=== PATIENT | male | born 1990 | race Caucasian/White ===

== ENCOUNTER 2018-10-02 10:26 | Observation (INO) | payer SELFPAY ==
--- NOTE | 2018-10-02 11:14 | ER Document Report ---
ED Medical Screen (RME) - General Chief Complaint: Abscess Stated Complaint: ABSCESS/GENITAL AREA Time Seen by Provider: 10/02/18 11:06 Mode of Arrival: Ambulatory Information source: Patient Notes: Patient presents to the emergency department with complaints of open sore questionable abscess to the left side of his penis that radiates down into the left testicle for the past few days. Denies penile discharge. Reports some left testicular pain. Denies fever vomiting. Reports he only has one sexual partner that is his . Reports he has not shaved his groin area for a while. He is voiding fine. I have greeted and performed a rapid initial assessment of this patient. A comprehensive ED assessment and evaluation of the patient, analysis of test results and completion of the medical decision making process will be conducted by additional ED providers. Dictation of this chart was performed using voice recognition software; therefore, there may be some unintended grammatical errors. TRAVEL OUTSIDE OF THE [place] IN LAST 30 DAYS: No - Related Data Allergies/Adverse Reactions: No Known Allergies Allergy (Verified 10/02/18 10:39) Past Medical History - Social History Frequency of alcohol use: Occasional Drug Abuse: None Renal/ Medical History: Denies: Hx Peritoneal Dialysis Physical Exam - Vital signs Vitals: Temp Pulse Resp BP Pulse Ox 98.3 F 90 20 133/81 H 97 10/02/18 11:00 10/02/18 11:00 10/02/18 11:00 10/02/18 11:00 10/02/18 11:00 Course - Vital Signs Vital signs: Temp Pulse Resp BP Pulse Ox 98.3 F 90 20 133/81 H 97 10/02/18 11:10/02/18 11:00 10/02/18 11:00 10/02/18 11:00 10/02/18 11:00
[2018-10-02 11:52] LABS: APPEARANCE,URINE CLEAR; BILIRUBIN,URINE NEGATIVE (NEGATIVE); COLOR,URINE YELLOW; GLUCOSE, URINE NEGATIVE (NEGATIVE); KETONES,URINE NEGATIVE (NEGATIVE); LEUKOCYTE ESTERASE,URINE NEGATIVE (NEGATIVE); NITRITE,URINE NEGATIVE (NEGATIVE); PROTEIN,URINE NEGATIVE (NEGATIVE); URINE SPECIFIC GRAVITY 1.026
--- NOTE | 2018-10-02 12:39 | RADIOLOGY REPORT (SQ) ---
EXAM DESCRIPTION: U/S SCROTUM W/DOPPLER COMPLETED DATE/TIME: 10/02/2018 12:27 pm REASON FOR STUDY: abscess left side penis, testicular pain COMPARISON: None. TECHNIQUE: Static and realtime peña scale imaging of the scrotum and testes. Selected color Doppler and spectral images recorded to document blood flow. LIMITATIONS: None. FINDINGS: RIGHT: TESTICLE: Normal size. Normal echotexture. Normal blood flow. No mass. EPIDIDYMIS: Normal. HYDROCELE OR VARICOCELE: No. HERNIA OR EXTRA-TESTICULAR MASS: No. OTHER: No other significant finding. LEFT: TESTICLE: Normal size. Normal echotexture. Normal blood flow. No mass. EPIDIDYMIS: Normal. HYDROCELE OR VARICOCELE: Small varicocele. No hydrocele. HERNIA OR EXTRA-TESTICULAR MASS: No. OTHER: Subcutaneous heterogeneous swelling -fluid in the left penile shaft, 4.4 cm in greatest length , 1 cm thickness. IMPRESSION: NO EVIDENCE OF TESTICULAR MASS OR TORSION.Subcutaneous heterogeneous swelling -fluid in the left penile shaft, 4.4 cm in greatest length, 1 cm thickness. TECHNICAL DOCUMENTATION: JOB ID: [id number] [place]-[id number] 2010 [email or web address]- All Rights Reserved Reading location - IP/workstation name: [email or web address]
[2018-10-02 13:20] LABS: CHLAM PCR NOT DETECTED (NOT DETECT)
[2018-10-02] MEDS ORDERED: NORMAL SALINE 1000 ML 1,000 ML IV ONE (14:17)
--- NOTE | 2018-10-02 14:23 | ER Document Report ---
ED Skin Rash/Insect Bite/Abscs - General Chief Complaint: Abscess Stated Complaint: ABSCESS/GENITAL AREA Time Seen by Provider: 10/02/18 11:06 Mode of Arrival: Ambulatory Information source: Patient Notes: In the ED for abscess to his penis. He states it started as a little pimple sore on he tried soaking it in Epson salt he tried squeezing it any states it just got a lot worse he stated that yesterday he had some leftover Keflex from 2 days ago so he took that and he states it just got worse. He states he went to bed at about midnight which is the last time he said anything to eat or drink. He states he slept in this morning and he has not had anything to eat or drink today. He states that did was open a little bit yesterday but it is closed over scabbed over and become much larger. An ultrasound does show that he has a large abscess to the penis. His GC and Chlamydia are negative he is a little dehydrated we will get him some fluids I have consulted Dr. Moeller who will come and examined the patient he is requesting labs and blood cultures these have been started IV fluids have been started. TRAVEL OUTSIDE OF THE [place] IN LAST 30 DAYS: No - HPI Patient complains to provider of: Tender/swollen area Onset: - Onset/Duration: Gradual Quality of pain: Sharp, Throbbing Severity: Moderate Pain Level: 3 Skin Character: Erythema, Tenderness Skin Temperature: Warm Quality of rash: Painful Identify cause: No Exacerbated by: Denies Relieved by: Denies Similar symptoms previously: No Recently seen / treated by doctor: No - Related Data Allergies/Adverse Reactions: No Known Allergies Allergy (Verified 10/02/18 10:39) Past Medical History - General Information source: Patient - Social History Smoking Status: Never Smoker Frequency of alcohol use: Social Drug Abuse: None Lives with: Family Family History: Reviewed & Not Pertinent Patient has suicidal ideation: No Patient has homicidal ideation: No - Past Medical History Cardiac Medical History: Reports: None Pulmonary Medical History: Reports: None EENT Medical History: Reports: None Neurological Medical History: Reports: None Endocrine Medical History: Reports: None Renal/ Medical History: Reports: None Malignancy Medical History: Reports None GI Medical History: Reports: None Musculoskeletal Medical History: Reports None Skin Medical History: Reports None Psychiatric Medical History: Reports: Hx Anxiety Physical Exam - Vital signs Vitals: Temp Pulse Resp BP Pulse Ox 98.3 F 90 20 133/81 H 97 10/02/18 11:00 10/02/18 11:00 10/02/18 11:00 10/02/18 11:00 10/02/18 11:00 Interpretation: Normal - General General appearance: Appears well, Alert - HEENT Head: Normocephalic, Atraumatic Eyes: Normal Pupils: PERRL - Respiratory Respiratory status: No respiratory distress Chest status: Nontender Breath sounds: Normal Chest palpation: Normal - Cardiovascular Rhythm: Regular Heart sounds: Normal auscultation Murmur: No - Abdominal Inspection: Normal Distension: No distension Bowel sounds: Normal Tenderness: Nontender Organomegaly: No organomegaly - Genitourinary Tenderness: Nontender Notes: Large abscess erythema and swelling to penis shaft - Back Back: Normal, Nontender - Extremities General upper extremity: Normal inspection, Nontender, Normal color, Normal ROM, Normal temperature General lower extremity: Normal inspection, Nontender, Normal color, Normal ROM, Normal temperature, Normal weight bearing. No: Kelsea's sign - Neurological Neuro grossly intact: Yes Cognition: Normal Orientation: AAOx4 Amber Coma Scale Eye Opening: Spontaneous Amber Coma Scale Verbal: Oriented Kavin Coma Scale Motor: Obeys Commands Kavin Coma Scale Total: 15 Speech: Normal Motor strength normal: LUE, RUE, LLE, RLE Sensory: Normal - Psychological Associated symptoms: Normal affect, Normal mood - Skin Skin Temperature: Warm Skin Moisture: Dry Skin Color: Normal Skin irregularity: Abscess Location of irregularity: Other - Penis shaft Character of irregularity: Erythematous Irregularity with: Swelling, Tenderness Course - Vital Signs Vital signs: Temp Pulse Resp BP Pulse Ox 97.7 F 75 16 122/74 98 10/02/18 21:18 10/02/18 21:18 10/02/18 21:18 10/02/18 21:18 10/02/18 21:18 - Laboratory Result Diagrams: 10/02/18 14:30 10/02/18 14:30 Laboratory results interpreted by me: 10/02/18 10/02/18 10/02/18 11:20 14:30 14:30 RBC 5.68 H Carbon Dioxide 31 H Urine Urobilinogen 2.0 H Discharge - Discharge Clinical Impression: Abscess of shaft of penis Disposition: ADMITTED OBSERVATION Admitting Provider: Surgicalist Pako moeller
--- NOTE | 2018-10-02 14:49 | PDOC H&P ---
History of Present Illness Patient complains of: Penile swelling, drainage, pain, redness History of Present Illness: SUGAR QUACH is a 27 year old male Presents emergency department via ground rescue complaining of a 5-day history of swelling, pain, discoloration, and intermittent drainage from the left side o f his penis. He was evaluated in the emergency department where he was found to have a penile abscess based on physical examination, and confirmatory ultrasonography showing a 4 x 1 cm of fluid collection. Surgery was consulted as there was no urology regulatory affairs consultant. Findings were consistent with an abscess and needed drainage. He was admitted to the surgical service for management, specifically I&D, packing possible drain placement. Past Medical History Medical History: None Cardiac Medical History: Reports: None Pulmonary Medical History: Reports: None EENT Medical History: Reports: None Neurological Medical History: Reports: None Endocrine Medical History: Reports: None Renal/ Medical History: Reports: None Malignancy Medical History: Reports: None GI Medical History: Reports: None Musculoskeltal Medical History: Reports: None Skin Medical History: Reports: None Past Surgical History Past Surgical History: Reports: None Social History Lives with: Family Smoking Status: Never Smoker Frequency of Alcohol Use: None Hx Recreational Drug Use: No Hx Prescription Drug Abuse: No Family History Family History: None, Reviewed & Not Pertinent Parental Family History Reviewed: Yes Children Family History Reviewed: Yes Sibling(s) Family History Reviewed.: Yes Medication/Allergy Home Medications: Ibuprofen [Motrin 800 mg Tablet] 800 mg PO Q8HP PRN #30 tablet 01/24/17 Allergies/Adverse Reactions: No Known Allergies Allergy (Verified 10/02/18 10:39) Review of Systems Constitutional: PRESENT: as per HPI Eyes: ABSENT: visual disturbances Ears: ABSENT: hearing changes Cardiovascular: ABSENT: chest pain, dyspnea on exertion, edema, orthropnea, palpitations Respiratory: ABSENT: cough, hemoptysis Genitourinary: PRESENT: as per HPI, other - Patient denies dysuria, penile trauma, piercing Musculoskeletal: ABSENT: joint swelling Integumentary: ABSENT: rash, wounds Neurological: ABSENT: abnormal gait, abnormal speech, confusion, dizziness, focal weakness, syncope Psychiatric: ABSENT: anxiety, depression, homidical ideation, suicidal ideation Endocrine: ABSENT: cold intolerance, heat intolerance, polydipsia, polyuria Hematologic/Lymphatic: ABSENT: easy bleeding, easy bruising Physical Exam Vital Signs: Temp Pulse Resp BP Pulse Ox 98.3 F 90 20 133/81 H 97 10/02/18 11:00 10/02/18 11:00 10/02/18 11:00 10/02/18 11:00 10/02/18 11:00 Intake & Output 10/01/18 10/02/18 10/03/18 06:59 06:59 06:59 Weight 104.8 kg General appearance: PRESENT: mild distress Head exam: PRESENT: normocephalic Eye exam: PRESENT: EOMI Mouth exam: PRESENT: dry mucosa Neck exam: PRESENT: full ROM Respiratory exam: PRESENT: clear to auscultation ruslan Cardiovascular exam: PRESENT: RRR Pulses: PRESENT: normal carotid pulses, normal radial pulses, normal femoral pulses GI/Abdominal exam: PRESENT: soft Rectal exam: PRESENT: deferred Gentrourinary exam: PRESENT: other - Penis is enlarged, centrally swollen, with a punctate area of erythema and crusting drainage. The penis is very tender in the mid shaft position Extremities exam: PRESENT: full ROM Musculoskeletal exam: PRESENT: full ROM Neurological exam: PRESENT: oriented to person, oriented to place, oriented to time, oriented to situation Psychiatric exam: PRESENT: appropriate affect Results Laboratory Results: 10/02/18 11:20 Urine Color YELLOW Urine Appearance CLEAR Urine pH 6.0 Ur Specific [place] 1.026 Urine Protein NEGATIVE Urine Glucose (UA) NEGATIVE Urine Ketones NEGATIVE Urine Blood NEGATIVE Urine Nitrite NEGATIVE Ur Leukocyte Esterase NEGATIVE Urine WBC (Auto) 1 Urine RBC (Auto) 0 Impressions: Scrotum Ultrasound 10/02/18 11:10 IMPRESSION: NO EVIDENCE OF TESTICULAR MASS OR TORSION.Subcutaneous heterogeneous swelling -fluid in the left penile shaft, 4.4 cm in greatest length, 1 cm thickness. Assessment & Plan - Diagnosis (1) Penile abscess Is this a current diagnosis for this admission?: Yes Plan: Impression: Acute abscess of the anterior lateral midshaft penis otherwise healthy 27-year-old male; suspect etiology low-grade trauma versus insect bite versus other Recommendations: 1. Admit to the surgical service, keep n.p.o., IV fluids, intravenous antibiotics. 2. Take patient to the operating room for incision drainage packing, will drain placement. The infection appears to be confined to the subcutaneous tissue, and not the corpus cavernosum. He expresses understanding and agrees to proceed. - Time Time Spent: 30 to 50 Minutes Critical Time spent with patient: Less than 15 minutes Medications reviewed and adjusted accordingly: Yes Anticipated discharge: Home - Inpatient Certification Based on my medical assessment, after consideration of the patient's comorbidities, presenting symptoms, or acuity I expect that the services needed warrant INPATIENT care.: Yes I certify that my determination is in accordance with my understanding of Medicare's requirements for reasonable and necessary INPATIENT services [42 CFR 412.3e].: Yes Medical Necessity: Need For IV Fluids, Need for Pain Control, Need for IV Antibiotics, Need for Surgery
[2018-10-02 14:55] LABS: ABSOLUTE EOSINOPHILS # (AUTO) 0.1 10^3/uL (0.0-0.6); ABSOLUTE LYMPHOCYTES (AUTO) 1.8 10^3/uL (0.5-4.7); ABSOLUTE MONOCYTES (AUTO) 1.1 10^3/uL (0.1-1.4); ABSOLUTE NEUT (AUTO) 7.6 10^3/uL (1.7-8.2); BASOPHILS % (AUTO) 0.2 % (0-2); EOSINOPHILS % (AUTO) 0.8 % (0-6); HEMATOCRIT 48.4 % (37.9-51.0); HEMOGLOBIN 16.5 g/dL (13.5-17.0); LYMPHOCYTES % (AUTO) 17.1 % (13-45); MEAN CORPUSCULAR VOLUME 85 fl (80-97); MONOCYTES % (AUTO) 10.1 % (3-13); PLATELET COUNT 189 10^3/uL (150-450); RED BLOOD COUNT 5.68 10^6/uL (4.35-5.55); RED CELL DISTRIBUTION WIDTH 12.9 % (11.5-14.0); SEGMENTED NEUTROPHILS % (AUTO) 71.8 % (42-78); TOTAL CELLS COUNTED % (AUTO) 100 %; WHITE BLOOD COUNT 10.5 10^3/uL (4.0-10.5)
[2018-10-02] MEDS ORDERED: MIDAZOLAM 2 MG/2 ML INJ ONE ×2 (15:08→15:12)
[2018-10-02] MEDS ORDERED: FENTANYL CITRATE INJ/PF 100 MCG/2 ML AMPUL ONE (15:08)
[2018-10-02] MEDS ORDERED: DEXMEDETOMIDINE INJ 80 MCG/20 ML VIAL IV ONE (15:09)
[2018-10-02] MEDS ORDERED: PROPOFOL INJ 200 MG/20 ML VIAL IV ONE (15:09)
[2018-10-02 15:17] LABS: ALANINE AMINOTRANSFERASE 41 U/L (21-72); ALBUMIN 4.7 g/dL (3.5-5.0); ALKALINE PHOSPHATASE 82 U/L (38-126); ANION GAP 12 (5-19); ASPARTATE AMINO TRANSFERASE 42 U/L (17-59); BILIRUBIN,DIRECT 0.3 mg/dL (0.0-0.4); BILIRUBIN,TOTAL 1.1 mg/dL (0.2-1.3); BLOOD UREA NITROGEN 16 mg/dL (7-20); CALCIUM 9.8 mg/dL (8.4-10.2); CARBON DIOXIDE 31 mmol/L (22-30); CHLORIDE 98 mmol/L (98-107); GLUCOSE 87 mg/dL (75-110); POTASSIUM 3.9 mmol/L (3.6-5.0); SODIUM 140.7 mmol/L (137-145)
[2018-10-02] MEDS ORDERED: CEFAZOLIN INJ 1 GM VIAL ONE (15:18)
[2018-10-02] MEDS ORDERED: BUPIVACAINE HCL 0.25 % INJ/PF (2.5 MG/1 ML) 30 ML VIAL ONE (15:24)
[2018-10-02] MEDS ORDERED: LIDOCAINE 0.5% INJ-PF (5 MG/ML) 50 ML SDV ONE (15:24)
[2018-10-02] MEDS ORDERED: OXYCODONE-ACETAMINOPHEN 5-325 MG TABLET PO PRN ×2 (16:13)
[2018-10-02] MEDS ORDERED: MEPERIDINE HCL/PF INJ 25 MG/1 ML DISP.SYRIN IV PRN (16:13)
[2018-10-02] MEDS ORDERED: PROMETHAZINE HCL INJ 25 MG/1 ML VIAL IV PRN ×2 (16:13)
[2018-10-02] MEDS ORDERED: DIPHENHYDRAMINE HCL 50 MG/ML VIAL IV PRN (16:13)
[2018-10-02] MEDS ORDERED: FENTANYL CITRATE INJ/PF 100 MCG/2 ML AMPUL IV PRN ×3 (16:13)
[2018-10-02] MEDS ORDERED: MORPHINE SULFATE 10 MG/ML INJ IV PRN (16:13)
[2018-10-02] MEDS ORDERED: ONDANSETRON HCL INJ/PF 4 MG/2 ML SDV IV PRN (16:13)
--- NOTE | 2018-10-02 16:27 | Operative Report ---
Operative Report DATE OF SURGERY: 10/02/18 PREOPERATIVE DIAGNOSIS: Acute penile abscess with cellulitis POSTOPERATIVE DIAGNOSIS: Same OPERATION: Excisional debridement of skin, subcutaneous tissue and pus from the anterior and left lateral aspect of the mid shaft of the penis, with irrigation and packing SURGEON: TAD AGUIAR ANESTHESIA: LMAC TISSUE REMOVED OR ALTERED: Skin and subcutaneous pus COMPLICATIONS: None ESTIMATED BLOOD LOSS: 10 cc INTRAOPERATIVE FINDINGS: See below PROCEDURE: The patient was evaluated in the emergency department by Dr. Aguiar. The findings were significant for an acute left anterior lateral penile midshaft abscess. The patient was felt to need immediate drainage operating room. There was no urologist alteration specialist. General surgery was consulted, and services were offered for excisional drainage. Should agreed to proceed with the offered operation. Patient was taken to the operating room where LMAC anesthesia was induced. The penis was prepped and draped in sterile fashion. Surgical plan surgical timeout were conducted. The findings were significant for necrotic area of skin midshaft anterior lateral penis with surrounding swelling and edema. The skin was anesthetized 1% plain lidocaine. A transverse excisional ellipse of skin was then performed approximately 1 cm wide, and 4-1/2 cm long to encompass the necrotic skin. Skin was disposed of. We immediately got into pus. Hemostat was used to break up loculations in the subcutaneous space. Culture was sent for Gram stain and sensitivity. The infection extended distally, laterally and somewhat anteriorly in a circumferential fashion. All loculations were broken up with index finger. The infection appeared to be confined to the subcutaneous tissue, and did not titrate the corpus cavernosum. The penile meatus, foreskin, base of scrotum, hemiscrotum, and perineal body were not involved in the infection. I irrigated the subcutaneous space out vigorously with normal saline, then cauterized a small dorsal vein, then packed the subcutaneous cavity with approximately a foot of quarter inch iodoform packing, then wrapped with 4 by fours and Kerlix wrap applied. Patient tolerated procedure well, taken to recovery room in stable condition.
[2018-10-02] MEDS: FENTANYL CITRATE INJ/PF 100 MCG/2 ML AMPUL ONE ×2 (16:33→16:50)
[2018-10-02] MEDS: HYDROMORPHONE HCL INJ/PF 2 MG/ML AMPULE ONE ×2 (17:17→17:32)
[2018-10-02] MEDS: KETOROLAC TROMETHAMINE 10 MG TABLET PO PRN (22:14)
[2018-10-02] MEDS: CEFAZOLIN 1 GM/D5W RTU 1 GM/50 ML RTUPB IV SCH (22:15)
[2018-10-03] MEDS: CEFAZOLIN 1 GM/D5W RTU 1 GM/50 ML RTUPB IV SCH ×3 (07:49→21:43)
--- NOTE | 2018-10-03 08:50 | PDOC PROGRESS REPORT ---
Subjective Progress Note for:: 10/03/18 Reason For Visit: ABSCESS PENILE SHAFT Physical Exam Vital Signs: Temp Pulse Resp BP Pulse Ox 97.7 F 75 16 122/74 98 10/02/18 21:18 10/02/18 21:18 10/02/18 21:18 10/02/18 21:18 10/02/18 21:18 Intake & Output 10/02/18 10/03/18 10/04/18 06:59 06:59 06:59 Intake Total 2200 Output Total 505 Balance 1695 Weight 104.8 kg General appearance: PRESENT: no acute distress Eye exam: PRESENT: EOMI Mouth exam: PRESENT: moist Neck exam: PRESENT: full ROM Respiratory exam: PRESENT: clear to auscultation ruslan Cardiovascular exam: PRESENT: RRR Pulses: PRESENT: normal radial pulses, normal femoral pulses GI/Abdominal exam: PRESENT: soft Rectal exam: PRESENT: deferred Gentrourinary exam: PRESENT: other - penile shaft pack removed wound clean dry no pus wet to dry dresssing applied will cont wet to dry prob home in am Results Laboratory Results: 10/02/18 14:30 10/02/18 14:30 10/02/18 10/02/18 10/02/18 11:20 14:30 14:30 WBC 10.5 RBC 5.68 H Hgb 16.5 Hct 48.4 MCV 85 MCH 29.0 MCHC 34.0 RDW 12.9 Plt Count 189 Seg Neutrophils % 71.8 Lymphocytes % 17.1 Monocytes % 10.1 Eosinophils % 0.8 Basophils % 0.2 Absolute Neutrophils 7.6 Absolute Lymphocytes 1.8 Absolute Monocytes 1.1 Absolute Eosinophils 0.1 Absolute Basophils 0.0 Sodium 140.7 Potassium 3.9 Chloride 98 Carbon Dioxide 31 H Anion Gap 12 BUN 16 Creatinine 0.86 Est GFR ( Amer) > 60 Est GFR (Non-Af Amer) > 60 Glucose 87 Calcium 9.8 Total Bilirubin 1.1 AST 42 ALT 41 Alkaline Phosphatase 82 Total Protein 8.0 Albumin 4.7 Urine Color YELLOW Urine Appearance CLEAR Urine pH 6.0 Ur Specific [place] 1.026 Urine Protein NEGATIVE Urine Glucose (UA) NEGATIVE Urine Ketones NEGATIVE Urine Blood NEGATIVE Urine Nitrite NEGATIVE Ur Leukocyte Esterase NEGATIVE Urine WBC (Auto) 1 Urine RBC (Auto) 0 Impressions: Scrotum Ultrasound 10/02/18 11:10 IMPRESSION: NO EVIDENCE OF TESTICULAR MASS OR TORSION.Subcutaneous heterogeneous swelling -fluid in the left penile shaft, 4.4 cm in greatest length, 1 cm thickness.
[2018-10-04] MEDS: KETOROLAC TROMETHAMINE 10 MG TABLET PO PRN (05:37)
[2018-10-04] MEDS: CEFAZOLIN 1 GM/D5W RTU 1 GM/50 ML RTUPB IV SCH (05:50)
[2018-10-04] MEDS ORDERED: SULFAMETHOXAZOLE/TRIMETHOPRIM 800-160 MG TABLET PO SCH (10:01)
[2018-10-04 11:31] VITALS: BP 128/91
--- NOTE | 2018-10-04 12:13 | PDOC DISCHARGE SUMMARY ---
General - Admit/Disc Date/PCP Admission Date/Primary Care Provider: 10/02/18 14:49 Discharge Date: 10/04/18 - Discharge Diagnosis (1) Penile abscess Is this a current diagnosis for this admission?: Yes - Additional Information Resuscitation Status: Full Code Discharge Diet: As Tolerated Discharge Activity: Activity As Tolerated, Balance Activity w/Rest Home Medications: No Home Medications 10/02/18 History of Present Illness History of Present Illness: SUGAR QUACH is a 27 year old male Hospital Course Hospital Course: This is a 27-year-old male admitted with an abscess on the shaft of the penis. He was taken to the operating room where incision and drainage was performed. He was transferred to the floor in stable condition. His symptoms greatly improved. The patient was found to have MRSA on wound culture. His antibiotics were changed to account for this. By 10/04/2018, the patient was ambulating, tolerating a diet, his pain was controlled, his fevers were gone, and it was f elt that he had reached maximal hospital benefit. At this time the patient is medically fit for discharge. Physical Exam Vital Signs: Temp Pulse Resp BP Pulse Ox 97.6 F 66 20 128/91 H 97 10/04/18 11:29 10/04/18 11:29 10/04/18 11:29 10/04/18 11:29 10/04/18 11:29 Intake & Output 10/03/18 10/04/18 10/05/18 06:59 06:59 06:59 Intake Total 2200 1368 Output Total 505 Balance 1695 1368 Weight 104.8 kg 105.2 kg Results Laboratory Results: 10/02/18 14:30 10/02/18 14:30 10/02/18 16:00 Penis Gram Stain - Final 10/02/18 16:00 Penis Wound Culture - Final Mrsa (Meth Resis Staph Aureus) No Anaerobic Organisms Impressions: Scrotum Ultrasound 10/02/18 11:10 IMPRESSION: NO EVIDENCE OF TESTICULAR MASS OR TORSION.Subcutaneous heterogeneous swelling -fluid in the left penile shaft, 4.4 cm in greatest length, 1 cm thickness. Qualifiers - * PATIENT BEING DISCHARGED WITH ANY OF THE FOLLOWING DIAGNOSIS: No Acute Heart Failure - Is this a Heart Failure Patient?: No Plan Time Spent: Less than 30 Minutes
== END 2018-10-04 13:34 | disposition home or self-care (01) ==
LOC: ER 10:26 → EH 14:49 → 4S 18:15
PROVIDERS: ADMIT Surgery; ATTEND Surgery
PROC: 0JBC0ZZ Excision of Pelvic Region Subcutaneous Tissue and Fascia, Open Approach (ICD-10-PCS; principal; 2018-10-02 15:00)
DX: N48.21 Abscess of corpus cavernosum and penis (principal); B95.62 Methicillin resistant Staphylococcus aureus infection as the cause of diseases classified elsewhere; N50.812 Left testicular pain
CPT/HCPCS: 99285; 36415; 87040; 87070; 85025; 87075; 87077; 80053; 81001; 87186; 87491; 87591; 76870; 93976; 00920; 11042; G0378 ×3; A6266; J2250; J0690 ×4; J3010; J3490 ×4; J1170; J7030; J2704; 87205; 920